=== PATIENT | male | born 1945 | race Caucasian/White ===

== ENCOUNTER 2017-06-12 12:38 | Emergency (ER) | payer OTHER ==
[2017-06-12 12:46] VITALS: BP 152/82; PULSE 64; TEMP 98.3; BMI 29.7
--- NOTE | 2017-06-12 13:17 | PDOC ---
History of Present Illness - General History Source: Patient Exam Limitations: No Limitations - History of Present Illness Initial Comments: 06/12/17 14:31 The patient is a 71 year old male, with a significant past medical history of colorectal cancer, cirrhosis, and BPH, who presents to the emergency department with a fish hook caught in his neck since earlier this afternoon. The patient reports he was fishing, when suddenly the fish came off the line and the hook caught into his neck The patient reports associated neck pain, but denies any fever or chills. He denies any other trauma. He denies any numbness, tingling, cough, headache, or dizziness. He denies any chest pain, shortness of breath, diaphoresis, or palpitations. Allergies: NKDA Past Surgical History: Colon resection, colostomy Social History: Former smoker (Quit 2003). No ETOH or drug use. <Ioana Palacios - Last Filed: 06/12/17 14:31> <Jt Collins - Last Filed: 06/12/17 15:16> - General Chief Complaint: Injury Stated Complaint: FISH HOOK IN NECK Time Seen by Provider: 06/12/17 13:08 Past History <Ioana Palacios - Last Filed: 06/12/17 14:31> - Past Medical History Anemia: No Asthma: No Cancer: Yes (COLORECTAL CA) Cardiac Disorders: No COPD: No CHF: No HTN: No Liver Disease: Yes (CIRRHOSIS) Other medical history: bph - Surgical History Abdominal Surgery: Yes (COLON RESECTION, COLOSTOMY) - Psycho/Social/Smoking Cessation Hx Anxiety: No Suicidal Ideation: No Smoking History: Former smoker Have you smoked in the past 12 months: No If you are a former smoker, when did you quit?: 2003 Information on smoking cessation initiated: No Hx Alcohol Use: No Drug/Substance Use Hx: No Substance Use Type: None Hx Substance Use Treatment: No <Jt Collins - Last Filed: 06/12/17 15:16> - Past Medical History Allergies/Adverse Reactions: Allergies Allergy/AdvReac Type Severity Reaction Status Date / Time No Known Allergies Allergy Verified 06/12/17 12:43 Home Medications: Ambulatory Orders Aspirin [ASA -] 81 mg PO DAILY 09/08/14 Naproxen [Naprosyn -] 500 mg PO BID PRN 01/03/16 Tamsulosin HCl [Flomax] 0.4 mg PO DAILY 11/06/15 Amoxicillin/Potassium Clav [Augmentin 500-125 Tablet] 1 each PO TID #30 tablet 06/12/17 Review of Systems - Review of Systems Able to Perform ROS?: Yes Comments:: 06/12/17 14:32 GENERAL/CONSTITUTIONAL: No fever or chills. No weakness. HEAD, EYES, EARS, NOSE AND THROAT: No change in vision. No ear pain or discharge. No sore throat. NECK: Yes: Yes: +fish hook caught in neck with associated pain. CARDIOVASCULAR: No chest pain or shortness of breath. RESPIRATORY: No cough, wheezing, or hemoptysis. GASTROINTESTINAL: No nausea, vomiting, diarrhea or constipation. GENITOURINARY: No dysuria, frequency, or change in urination. MUSCULOSKELETAL: No joint or muscle swelling or pain. No neck or back pain. SKIN: Yes: +fish hook caught in neck with associated pain. No rash NEUROLOGIC: No headache, vertigo, loss of consciousness, or change in strength/ sensation. ENDOCRINE: No increased thirst. No abnormal weight change. HEMATOLOGIC/LYMPHATIC: No anemia, easy bleeding, or history of blood clots. ALLERGIC/IMMUNOLOGIC: No hives or skin allergy. <Palacios,Giomilsy - Last Filed: 06/12/17 14:31> *Physical Exam - Vital Signs Last Vital Signs Temp Pulse Resp BP Pulse Ox 98.3 F 64 18 152/82 97 06/12/17 12:43 06/12/17 12:43 06/12/17 12:43 06/12/17 12:43 06/12/17 12:43 - Physical Exam Comments: 06/12/17 14:32 GENERAL: Awake, alert, and fully oriented, in no acute distress HEAD: No signs of trauma EYES: PERRLA, EOMI, sclera anicteric, conjunctiva clear ENT: Auricles normal inspection, hearing grossly normal, nares patent, oropharynx clear without exudates. Moist mucosa NECK: 3 pronged fish hook that had one prong embedded in the superficial soft tissues of the chin.Normal ROM, supple, no lymphadenopathy, JVD, or masses LUNGS: Breath sounds equal, clear to auscultation bilaterally. No wheezes, and no crackles HEART: Regular rate and rhythm, normal S1 and S2, no murmurs, rubs or gallops ABDOMEN: Soft, nontender, normoactive bowel sounds. No guarding, no rebound. No masses EXTREMITIES: Normal range of motion, no edema. No clubbing or cyanosis. No cords, erythema, or tenderness NEUROLOGICAL: Cranial nerves II through XII grossly intact. Normal speech, normal gait SKIN: Warm, Dry, normal turgor, no rashes or lesions noted. <Ioana Palacios - Last Filed: 06/12/17 14:31> - Vital Signs Last Vital Signs Temp Pulse Resp BP Pulse Ox 98.3 F 64 18 152/82 97 06/12/17 12:43 06/12/17 12:43 06/12/17 12:43 06/12/17 12:43 06/12/17 12:43 <Jt Collins - Last Filed: 06/12/17 15:16> Procedures - Laceration/Wound Repair Jaw Wound Explored: foreign body removed Wound's Depth, Shape: superficial Irrigated w/ Saline: No Betadine Prep: No Anesthesia: 2% Lidocaine Progress: 06/12/17 14:34 Infiltrated skin above paco with lidocaine. Pushed paco through the skin with hemostats and was able to cut the paco off with a division toll wire chief. Esko was backed out with no bleeding. <Ioana Palacios - Last Filed: 06/12/17 14:31> *DC/Admit/Observation/Transfer - Attestations Scribe Attestion: 06/12/17 14:34 Documentation prepared by Ioana Palacios, acting as chief medical technologist for Jt Collins DO. <Ioana Palacios - Last Filed: 06/12/17 14:31> - Discharge Dispostion Admit: No - Attestations Physician Attestion: 06/12/17 13:08 I, Dr. Jt Collins, attest that this document has been prepared under my direction and personally reviewed by me in its entirety. I further attest, that it accurately reflects all work, treatment, procedures and medical decision -making performed by me. <Jt Collins - Last Filed: 06/12/17 15:16> Diagnosis at time of Disposition: Fish hook injury of cheek Qualifiers: Encounter type: initial encounter Qualified Code(s): S09.93XA - Unspecified injury of face, initial encounter - Discharge Dispostion Disposition: HOME Condition at time of disposition: Good - Prescriptions Prescriptions: Amoxicillin/Potassium Clav [Augmentin 500-125 Tablet] 1 each PO TID #30 tablet - Referrals Referrals: Connie Crooks MD [Primary Care Provider] - - Patient Instructions Printed Discharge Instructions: DI for Puncture Wound Additional Instructions: Jacob- Take the amoxicillin three times a day. Return to us if worse or new symptoms occur. Follow up with your physician later this week. Sunil- Dr. Jt Collins
[2017-06-12] MEDS ORDERED: DIPHTH,PERTUSS(ACELL),TET VAC 0.5 ML VIAL IM ONE (14:23)
[2017-06-12] MEDS ORDERED: AMOX TR/POT CLAV 500MG/125MG TABLETS (FP) PO ONE (14:23)
[2017-06-12] MEDS ORDERED: AMOX TR/POT CLAV 500MG/125MG TABLETS (FP) ONE (14:40)
[2017-06-12] MEDS ORDERED: TETANUS AND DIPHTHERIA TOXOID 0.5 ML DISP.SYRIN IM ONE (14:50)
== END 2017-06-12 15:35 | disposition home or self-care (01) ==
LOC: JER 12:38
PROC: 0HC4XZZ Extirpation of Matter from Neck Skin, External Approach (ICD-10-PCS; principal; 2017-06-12)
PROC: 3E0234Z Introduction of Serum, Toxoid and Vaccine into Muscle, Percutaneous Approach (ICD-10-PCS; 2017-06-12)
DX: S10.85XA Superficial foreign body of other specified part of neck, initial encounter (principal); W26.8XXA Contact with other sharp object(s), not elsewhere classified, initial encounter; W45.8XXA Other foreign body or object entering through skin, initial encounter; W21.89XA Striking against or struck by other sports equipment, initial encounter; Y93.89 Activity, other specified; Y92.9 Unspecified place or not applicable; K74.60 Unspecified cirrhosis of liver; N40.0 Benign prostatic hyperplasia without lower urinary tract symptoms; Z85.038 Personal history of other malignant neoplasm of large intestine; Z87.891 Personal history of nicotine dependence; Z79.82 Long term (current) use of aspirin
CPT/HCPCS: 99282-25

== ENCOUNTER 2017-08-11 22:38 | Emergency (ER) | payer OTHER ==
[2017-08-11 22:50] VITALS: BP 155/90; PULSE 81; TEMP 98.5; BMI 31.1
[2017-08-11 23:03] LABS: URINE BILIRUBIN Negative (NEGATIVE); URINE GLUCOSE (UA) Negative (NEGATIVE); URINE KETONE Negative (NEGATIVE); URINE NITRITE Negative (NEGATIVE); URINE PROTEIN Negative (NEGATIVE)
[2017-08-11 23:04] LABS: URINE BLOOD 1+ (NEGATIVE); URINE LEUK ESTERASE 1+ (NEGATIVE)
[2017-08-11 23:05] LABS: URINE APPEARANCE HAZY; URINE COLOR YELLOW
--- NOTE | 2017-08-11 23:20 | PDOC ---
History of Present Illness - General Chief Complaint: Pain, Acute Stated Complaint: FEVER,SWEATS BLADDER PAIN Time Seen by Provider: 08/11/17 22:42 - History of Present Illness Initial Comments: this 72-year-old man with a history of cirrhosis, colorectal cancer(s/p colostomy placement) and BPH presents with several day history of dysuria, urinary urgency/frequency. Today, he noticed some blood in his urine. Few days ago, he noted fever to 101F. That evening, he had shaking chills but fever/chills has not occurred since then. No new back pain or nausea/vomiting. His appetite has been decreased for several days. No previous history of urinary tract infection or renal colic. Last week, patient was treated for acute sinusitis after he presented to his PMD with headache and facial swelling. Patient was given an antibiotic course ( possibly Augmentin) which resulted in extensive diarrhea. No recent diarrhea noted. Patient denies cough/nasal congestion or rhinorrhea/sore throat. Patient speaks mostly Ivorian; interventionist is his son Past History - Past Medical History Allergies/Adverse Reactions: Allergies Allergy/AdvReac Type Severity Reaction Status Date / Time No Known Allergies Allergy Verified 08/11/17 22:40 Home Medications: Ambulatory Orders Naproxen [Naprosyn -] 500 mg PO BID 08/11/17 Tamsulosin HCl [Flomax] 0.4 mg PO DAILY 08/11/17 Levofloxacin [Levaquin -] 500 mg PO DAILY #7 tablet 08/12/17 Anemia: No Asthma: No Cancer: Yes (COLORECTAL CA) Cardiac Disorders: No COPD: No CHF: No HTN: No Liver Disease: Yes (CIRRHOSIS) - Surgical History Abdominal Surgery: Yes (COLON RESECTION, COLOSTOMY) - Suicide/Smoking/Psychosocial Hx Smoking History: Former smoker Have you smoked in the past 12 months: No If you are a former smoker, when did you quit?: 2003 Information on smoking cessation initiated: No Hx Alcohol Use: No Drug/Substance Use Hx: No Substance Use Type: None Hx Substance Use Treatment: No Review of Systems - Review of Systems Able to Perform ROS?: Yes Comments:: 12 point review of systems is negative except for what is noted in the history of present illness *Physical Exam - Vital Signs Last Vital Signs Temp Pulse Resp BP Pulse Ox 98.5 F 81 16 155/90 98 08/11/17 22:47 08/11/17 22:47 08/11/17 22:47 08/11/17 22:47 08/11/17 22:47 - Physical Exam Comments: GENERAL: Adult male, alert and oriented 3 , in no acute distress HEAD: Normal with no signs of trauma. EYES: PERRLA, EOMI, sclera anicteric, conjunctiva clear. ENT: Ears normal, nares patent, oropharynx clear without exudates. Dry mucous membranes. NECK: Normal range of motion, supple without lymphadenopathy, JVD, or masses. LUNGS: Breath sounds equal, clear to auscultation bilaterally. No wheezes, and no crackles. HEART:Regular rate and rhythm, normal S1 and S2 without murmur, rub or gallop. ABDOMEN:.normal bowel sounds No guarding,tenderness or rebound.No masses; No distention. Left mid abdominal stoma is pink and appears healthy; EXTREMITIES: Normal range of motion, no edema. No clubbing or cyanosis. No erythema, or tenderness. NEUROLOGICAL: Cranial nerves II through XII grossly intact. Normal speech. No focal neurological deficits. MUSCULOSKELETAL: Back non-tender to palpation, no CVA tenderness SKIN: Warm, Dry, normal turgor, no rashes or lesions noted. ED Treatment Course - LABORATORY CBC & Chemistry Diagram: 08/11/17 23:30 08/11/17 23:30 - ADDITIONAL ORDERS Additional order review: Laboratory Results 08/11/17 22:54 Urine Color Yellow Urine Appearance Hazy Urine pH 6.0 Ur Specific [place] 1.015 Urine Protein Negative Urine Glucose (UA) Negative Urine Ketones Negative Urine Blood 1+ H Urine Nitrite Negative Urine Bilirubin Negative Urine Urobilinogen 1.0 Ur Leukocyte Esterase 1+ H Progress Note - Progress Note Progress Note: Urinalysis notable for WBCs/RBCs/bacteria seen on microscopic exam. CBC shows no elevation of white blood cell count; chemistry profile significant for mild elevation in transaminases and mild elevation in alkaline phosphatase. Otherwise, no significant abnormalities and chemistry profile. Lactic acid is not elevated at 1. 2 Clinical presentation consistent with urinary tract infection. Workup reveals no clear indication of upper tract infection or urosepsis. Since patient is not vomiting, he can tolerate oral course of antibiotics at home. Patient will be given first dose of Levaquin 500 mg IV here. Course of 7 days of Levaquin 500 mg will be started and patient should follow-up with his general doctor within the next several days. His general doctor had given him a urology follow-up referral which he should contact within the next few days *DC/Admit/Observation/Transfer Diagnosis at time of Disposition: UTI (urinary tract infection) Qualifiers: Urinary tract infection type: site unspecified Hematuria presence: with hematuria Qualified Code(s): N39.0 - Urinary tract infection, site not specified - Discharge Dispostion Disposition: HOME Condition at time of disposition: Stable - Prescriptions Prescriptions: Levofloxacin [Levaquin -] 500 mg PO DAILY #7 tablet - Referrals Referrals: Connie Crooks MD [Primary Care Provider] - - Patient Instructions Printed Discharge Instructions: DI for Urinary Tract Infection (UTI) Additional Instructions: Drink plenty of water Levaquin 500 mg daily for 1 week Return to ER if you have worsening pain/fever or develop severe back pain/ vomiting Follow-up with urologist within 1 week as discussed
[2017-08-11 23:22] LABS: URINE BACTERIA FEW /hpf (NEGATIVE); URINE WBC 30-50 (3-5)
[2017-08-11 23:45] LABS: BASOPHIL 0.5 % (0-2.0); EOSINOPHIL 1.2 % (0-4.5); MCH 32.2 pg (25.7-33.7); MCHC 34.1 g/dl (32.0-35.9); MEAN CELL VOLUME 94.3 fl (80-96); MEAN PLT VOLUME 9.2 fl (7.5-11.1); NEUTROPHILS 72.1 % (42.8-82.8); PLATELET COUNT 74 K/MM3 (134-434); RDW 13.5 % (11.9-15.9); WHITE BLOOD COUNT 6.2 K/mm3 (4.0-10.8)
[2017-08-11 23:59] LABS: ALK PHOS 96 U/L (32-92); ANION GAP 7 (8-16); BILIRUBIN,TOTAL 1.1 mg/dl (0.2-1.0); CALCIUM 8.9 mg/dl (8.4-10.2); CO2 23 mmol/L (22-28); CREATININE 0.6 mg/dl (0.6-1.3); GLUCOSE,RANDOM 107 mg/dl (74-106); SGOT/AST 87 U/L (10-42); SGPT/ALT 58 U/L (10-40); TOT PROT 5.4 g/dl (6.4-8.3)
[2017-08-12] MEDS ORDERED: LEVOFLOXACIN 500 MG IVPB 100 ML IVPB ONE ×2 (00:11)
== END 2017-08-12 01:12 | disposition home or self-care (01) ==
LOC: FER 22:38
DX: Z87.891 Personal history of nicotine dependence (principal); N39.0 Urinary tract infection, site not specified; N40.0 Benign prostatic hyperplasia without lower urinary tract symptoms; K74.60 Unspecified cirrhosis of liver
CPT/HCPCS: 36415; 80053; 81003; 81015; 83605; 85025; 87086; 87186; 99281-25

== ENCOUNTER 2020-12-15 23:34 | Emergency (ER) | payer OTHER, MEDICARE ==
[2020-12-15 23:43] VITALS: BMI 31.3
[2020-12-15] MEDS ORDERED: ACETAMINOPHEN 1000 MG/100 ML VIAL (NON FORMULARY) IVPB ONE (23:50)
[2020-12-15] MEDS ORDERED: SODIUM CHLORIDE 1,000 ML IV STA (23:50)
[2020-12-15] MEDS ORDERED: ACETAMINOPHEN INJECTION 100 ML IVPB ONE (23:53)
[2020-12-16 01:21] LABS: BASO % 0.3 % (0-2.0); EOS % 0.6 % (0-4.5); HEMATOCRIT 42.5 % (35.4-49); HEMOGLOBIN 14.7 GM/dL (11.7-16.9); LYMPH % 15.3 % (8-40); MCH 33.5 pg (25.7-33.7); MCHC 34.6 g/dl (32.0-35.9); MEAN CELL VOLUME 96.8 fl (80-96); MONO % 7.4 % (3.8-10.2); NEUT % 76.4 % (42.8-82.8); RBC 4.39 M/mm3 (4.00-5.60); RDW 13.8 % (11.9-15.9)
[2020-12-16 01:40] LABS: INR 1.19 (0.83-1.09); PROTHROMBIN TIME (PATIENT) 14.3 SEC (9.7-13.0)
[2020-12-16 01:43] LABS: ACTIVATED PTT 29.6 SECONDS (25.2-36.5)
[2020-12-16 02:06] LABS: POTASSIUM 3.9 mmol/L (3.5-5.1)
[2020-12-16 02:09] LABS: ALBUMIN 3.8 g/dl (3.4-5.0); BLOOD UREA NITROGEN 12.8 mg/dL (7-18); CALCIUM 9.5 mg/dL (8.5-10.1)
[2020-12-16 02:12] LABS: CREATININE 0.7 mg/dL (0.55-1.3)
[2020-12-16 02:14] LABS: BILIRUBIN,TOTAL 0.8 mg/dL (0.2-1)
[2020-12-16 02:55] LABS: MEAN PLT VOLUME 9.4 fl (7.5-11.1); PLATELET COUNT 108 K/MM3 (134-434)
[2020-12-16 04:24] VITALS: PULSE 67
[2020-12-16] MEDS ORDERED: PIPERACILLIN/TAZOB 4.5 GM 4.5 GM/100 ML BAG IVPB ONE (04:31)
[2020-12-16] MEDS ORDERED: PIPERACILLIN/TAZOBACTAM 4.5 GM VIAL IVPB ONE ×2 (04:35→12:12)
[2020-12-16] MEDS ORDERED: morphine CARPU-JECT 4 MG/1 ML DISP.SYRIN IVPUSH ONE (04:47)
[2020-12-16] MEDS ORDERED: morphine SULFATE 4 MG/ML VIAL ONE (04:49)
[2020-12-16] MEDS ORDERED: ACETAMINOPHEN 1000 MG/100 ML VIAL (NON FORMULARY) IVPB ONE (09:29)
[2020-12-16] MEDS ORDERED: ACETAMINOPHEN INJECTION 100 ML IVPB ONE (09:38)
[2020-12-16] MEDS ORDERED: PHYTONADIONE 10 MG/1 ML AMP IVPB ONE (11:38)
[2020-12-16] MEDS ORDERED: PHYTONADIONE 10 MG/1 ML AMP ONE (11:40)
[2020-12-16] MEDS ORDERED: PIPERACILLIN/TAZOB 4.5 GM 4.5 GM in DEXTROSE 5%-WATER - 100 ML IVPB ONE (12:02)
[2020-12-16 12:41] VITALS: BP 146/77; TEMP 99.1
== END 2020-12-16 13:05 | disposition short-term general hospital (02) ==
LOC: FER 23:34
PROC: 3E0333Z Introduction of Anti-inflammatory into Peripheral Vein, Percutaneous Approach (ICD-10-PCS; principal; 2020-12-15)
PROC: 3E0333Z Introduction of Anti-inflammatory into Peripheral Vein, Percutaneous Approach (ICD-10-PCS; 2020-12-15)
PROC: 3E033NZ Introduction of Analgesics, Hypnotics, Sedatives into Peripheral Vein, Percutaneous Approach (ICD-10-PCS; 2020-12-15)
PROC: 3E033GC Introduction of Other Therapeutic Substance into Peripheral Vein, Percutaneous Approach (ICD-10-PCS; 2020-12-15)
PROC: 3E03329 Introduction of Other Anti-infective into Peripheral Vein, Percutaneous Approach (ICD-10-PCS; 2020-12-15)
PROC: 3E03329 Introduction of Other Anti-infective into Peripheral Vein, Percutaneous Approach (ICD-10-PCS; 2020-12-15)
PROC: 3E0337Z Introduction of Electrolytic and Water Balance Substance into Peripheral Vein, Percutaneous Approach (ICD-10-PCS; 2020-12-15)
DX: K80.31 Calculus of bile duct with cholangitis, unspecified, with obstruction (principal); R10.9 Unspecified abdominal pain
CPT/HCPCS: 36415; 74177-TC; 80053; 83605; 83690; 85025; 85610; 85730; 99285-25; C9803; J0131; Q9967; U0003

== ENCOUNTER 2020-12-21 19:20 | Emergency (ER) | payer OTHER, MEDICARE | END 2020-12-21 19:26 | disposition home or self-care (01) | LOC: JVIRT 19:20 | DX: Z20.822 Contact with and (suspected) exposure to COVID-19 (principal) | CPT/HCPCS: C9803; G2012-GT; U0003 ==